=== PATIENT | female | born 1995 | race Caucasian/White ===

== ENCOUNTER 2020-05-01 04:19 | Emergency (ER) | payer SELFPAY ==
[2020-05-01 04:58] LABS: Urine Blood TRACE (NEG); Urine Glucose NEGATIVE (NEG); Urine Protein TRACE (NEG); Urine Specific Gravity >1.030 (1.005-1.030); Urine pH 5.5 (5.0-7.0)
[2020-05-01 05:20] LABS: Urine Bacteria LOADED /HPF (<20); Urine Culture Reflex Order REFLEXED; Urine Mucus 2+ /HPF (NONE SEEN)
[2020-05-01] MEDS ORDERED: CEFTRIAXONE 250 MG/VIAL ONE (06:21)
[2020-05-01] MEDS ORDERED: WATER FOR INJ,STERILE 10 ML ONE (06:21)
[2020-05-01] MEDS ORDERED: AZITHROMYCIN 250 MG TAB ONE (06:21)
--- NOTE | 2020-05-01 06:29 | ER ---
Nurse's Notes [facility] Name: Raquel Saldana Age: 25 yrs Sex: Female : 1995 Arrival Date: 05/01/2020 Time: 04:20 Bed 7 Private MD: Diagnosis: Urinary tract infection, site not specified;Unspecified sexually transmitted disease Presentation: 05/01 04:49 Chief complaint: Patient states: discharge when urinating, no pain but has weird odor. wh Denies fever. Coronavirus screen: Proceed with normal triage. Patient denies a cough. Patient denies shortness of breath or difficulty breathing. Patient denies measured and/or subjective temperature greater than 100.4F prior to today's visit. Patient denies travel on a cruise ship or to a country the [facility] currently lists as an affected area. Patient denies contact with known and/or suspected case of COVID-19. Ebola Screen: Patient negative for fever greater than or equal to 101.5 degrees Fahrenheit, and additional compatible Ebola Virus Disease symptoms Patient denies exposure to infectious person. Initial Sepsis Screen: Does the patient meet any 2 criteria? No. Patient's initial sepsis screen is negative. Does the patient have a suspected source of infection? Yes: Dysuria/Frequency/Urgency/UTI. Risk Assessment: Do you want to hurt yourself or someone else? Patient reports no desire to harm self or others. Onset of symptoms was May 01, 2020. 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 - Social history:: Smoking status: Patient reports the use of cigarette tobacco products, smokes one-half pack cigarettes per day. Screenin:52 Abuse screen: Denies threats or abuse. Denies injuries from another. Nutritional screening: No deficits noted. Tuberculosis screening: No symptoms or risk factors identified. Fall Risk None identified. Assessment: 04:51 General: Appears in no apparent distress. Behavior is calm, cooperative, appropriate for age. Pain: Denies pain. Neuro: Level of Consciousness is awake, alert, obeys commands, Oriented to person, place, time, situation, Appropriate for age. Cardiovascular: Capillary refill < 3 seconds. Respiratory: Airway is patent Respiratory effort is even, unlabored, Respiratory pattern is regular, symmetrical. GI: Abdomen is flat, non-distended, Abd is soft and non tender X 4 quads. : Reports discharge, from vagina that is. EENT: No signs and/or symptoms were reported regarding the EENT system. Derm: Skin is intact, is healthy with good turgor, Skin is pink, warm \T\ dry. normal. Musculoskeletal: Circulation, motion, and sensation intact. 06:34 Reassessment:. Vital Signs: 04:49 BP 128 / 94; Pulse 85; Resp 18; Temp 98.3; Pulse Ox 100% ; Weight 52.16 kg; Height 5 wh ft. 0 in. (152.40 cm); Pain 0/10; 04:49 Body Mass Index 22.46 (52.16 kg, 152.40 cm) ED Course: 04:20 Patient arrived in ED. cl3 04:49 Any Shea is Primary Nurse. 04:51 Triage completed. 04:52 Arm band placed on right wrist. 04:52 Patient has correct armband on for positive identification. Bed in low position. Call light in reach. Side rails up X 1. Pulse ox on. NIBP on. 06:00 Dian[facility]-C [facility] 06:00 Fito oDw MD is Attending Physician. kb 06:35 No provider procedures requiring assistance completed. Patient did not have IV access during this emergency room visit. Administered Medications: 06:21 Drug: Rocephin (cefTRIAXone) 250 mg Route: IM; Site: right gluteus; 06:40 Follow up: Response: No adverse reaction 06:21 Drug: Zithromax 1 grams Route: PO; 06:40 Follow up: Response: No adverse reaction Outcome: 06:28 Discharge ordered by . kb 06:34 Patient left the ED. 06:35 Discharged to home ambulatory. 06:35 Condition: stable 06:35 Discharge instructions given to patient, Instructed on discharge instructions, follow up and referral plans. medication usage, POC Demonstrated understanding of instructions, follow-up care, medications, POC Prescriptions given X 1. Addendum: 05/04/2020 07:59 Addendum: Culture Results: Positive urine culture. No further action required. Bacteria s g sensitive to prescribed antibiotic. Signatures: Dianelys Vyas, COMMUNICATIONS DEPARTMENT HEAD-C COMMUNICATIONS DEPARTMENT HEAD-Chas Kwok, RN RN Any Ortiz Charde cl3
--- NOTE | 2020-05-01 06:29 | EDPHYS ---
Physician Documentation [facility] Name: Raquel Saldana Age: 25 yrs Sex: Female : 1995 Arrival Date: 05/01/2020 Time: 04:20 Bed 7 Private MD: ED Physician Fito Dow HPI: 05/01 06:26 This 25 yrs old Female presents to ER via Ambulatory with complaints of Pain kb With Urination. 06:26 The patient presents with urinary symptoms, dysuria, vaginal discharge. Onset: The kb symptoms/episode began/occurred 3 day(s) ago. Modifying factors: The symptoms are alleviated by nothing, the symptoms are aggravated by urinating. Associated signs and symptoms: Pertinent positives: dysuria, vaginal discharge, Pertinent negatives: constipation, cramping, diarrhea, dyspareunia, fever, hematuria, nausea, urinary frequency, vaginal bleeding, vomiting. Severity of symptoms: At their worst the symptoms were moderate, in the emergency department the symptoms are unchanged. The patient has not experienced similar symptoms in the past. The patient has not recently seen a physician. Pt reports a pinching pain with urination. States she has had a discharge that isn't much different than normal, but she is stressed out about it because her sexual partner has had penile discharge. . 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 - Social history:: Smoking status: Patient reports the use of cigarette tobacco products, smokes one-half pack cigarettes per day. ROS: 06:24 Constitutional: Negative for fever, chills, and weight loss, Cardiovascular: Negative kb for chest pain, palpitations, and edema, Respiratory: Negative for shortness of breath, cough, wheezing, and pleuritic chest pain, Abdomen/GI: Negative for abdominal pain, nausea, vomiting, diarrhea, and constipation, MS/Extremity: Negative for injury and deformity, Skin: Negative for injury, rash, and discoloration, Neuro: Negative for headache, weakness, numbness, tingling, and seizure. 06:24 : Positive for urinary symptoms, burning with urination, vaginal discharge. Exam: 06:24 Constitutional: This is a well developed, well nourished patient who is awake, alert, kb and in no acute distress. Head/Face: Normocephalic, atraumatic. Chest/axilla: Normal chest wall appearance and motion. Nontender with no deformity. No lesions are appreciated. Cardiovascular: Regular rate and rhythm with a normal S1 and S2. No gallops, murmurs, or rubs. Normal PMI, no JVD. No pulse deficits. Respiratory: Lungs have equal breath sounds bilaterally, clear to auscultation and percussion. No rales, rhonchi or wheezes noted. No increased work of breathing, no retractions or nasal flaring. Abdomen/GI: Soft, non-tender, with normal bowel sounds. No distension or tympany. No guarding or rebound. No evidence of tenderness throughout. Back: No spinal tenderness. No costovertebral tenderness. Full range of motion. Skin: Warm, dry with normal turgor. Normal color with no rashes, no lesions, and no evidence of cellulitis. MS/ Extremity: Pulses equal, no cyanosis. Neurovascular intact. Full, normal range of motion. Neuro: Awake and alert, GCS 15, oriented to person, place, time, and situation. Cranial nerves II-XII grossly intact. Motor strength 5/5 in all extremities. Sensory grossly intact. Cerebellar exam normal. Normal gait. Vital Signs: 04:49 BP 128 / 94; Pulse 85; Resp 18; Temp 98.3; Pulse Ox 100% ; Weight 52.16 kg; Height 5 wh ft. 0 in. (152.40 cm); Pain 0/10; 04:49 Body Mass Index 22.46 (52.16 kg, 152.40 cm) wh MDM: 06:01 Patient medically screened. kb 06:24 Data reviewed: vital signs, nurses notes. Data interpreted: Pulse oximetry: on room air kb is 100 %. Interpretation: normal. Counseling: I had a detailed discussion with the patient and/or guardian regarding: the historical points, exam findings, and any diagnostic results supporting the discharge/admit diagnosis, lab results, the need for outpatient follow up, a family practitioner, to return to the emergency department if symptoms worsen or persist or if there are any questions or concerns that arise at home. 07/10 04:45 Order name: Urine Microscopic Only; Complete Time: 06:01 [email or web address] 05/01 04:56 Order name: Urine Dipstick--Ancillary (enter results); Complete Time: 06:01 2 05/01 04:56 Order name: Urine --Ancillary (enter results); Complete Time: 06:01 mw2 05/01 05:21 Order name: Urine Culture EDNY 05/01 04:45 Order name: Urine Dipstick-Ancillary (obtain specimen); Complete Time: 04:49 rr5 05/01 04:45 Order name: Urine Test (obtain specimen); Complete Time: 04:49 rr5 Administered Medications: 06:21 Drug: Rocephin (cefTRIAXone) 250 mg Route: IM; Site: right gluteus; 06:40 Follow up: Response: No adverse reaction 06:21 Drug: Zithromax 1 grams Route: PO; 06:40 Follow up: Response: No adverse reaction Disposition: 06:47 Co-signature as Attending Physician, Fito Dow MD. 7 Disposition: 05/01/20 06:28 Discharged to Home. Impression: Urinary tract infection, site not specified, Unspecified sexually transmitted disease. - Condition is Stable. - Discharge Instructions: Sexually Transmitted Disease, [id number], Urinary Tract Infection, Adult, [id number]. - Prescriptions for Doxycycline Hyclate 100 mg Oral Tablet - take 1 tablet by ORAL route every 12 hours; 20 tablet. - Medication Reconciliation Form, Thank You Letter, Antibiotic Education, Prescription Opioid Use form. - Follow up: Emergency Department; When: As needed; Reason: Worsening of condition. Follow up: Private Physician; When: 2 - 3 days; Reason: Recheck today's complaints, Continuance of care, Re-evaluation by your physician. Signatures: Dispatcher [employer] [facility] Dianelys Vyas FNP-C FNP-Any Beauchamp Raymond, RN RN rr5 Fito Dow MD MD 7 Corrections: (The following items were deleted from the chart) 06:34 06:28 05/01/2020 06:28 Discharged to Home. Impression: Urinary tract infection, site wh not specified; Unspecified sexually transmitted disease. Condition is Stable. Forms are Medication Reconciliation Form, Thank You Letter, Antibiotic Education, Prescription Opioid Use. Follow up: Emergency Department; When: As needed; Reason: Worsening of condition. Follow up: Private Physician; When: 2 - 3 days; Reason: Recheck today's complaints, Continuance of care, Re-evaluation by your physician. kb
[2020-05-01 06:59] VITALS: BP 128/94; TEMP 98.3; O2SAT 100
== END 2020-05-01 06:34 | disposition home or self-care (01) ==
LOC: ER 04:19
DX: N39.0 Urinary tract infection, site not specified (principal); A64 Unspecified sexually transmitted disease; F17.210 Nicotine dependence, cigarettes, uncomplicated
CPT/HCPCS: 81003; 81015; 81025; 87077; 87086; 87088; 87186; 96372; 99283; J0696

== ENCOUNTER 2021-02-25 12:29 | Inpatient (IN) | payer SELFPAY ==
[2021-02-25 13:30] LABS: Urine Blood Negative (Negative); Urine Glucose Negative (Negative); Urine Protein Negative (Negative); Urine Specific Gravity >=1.030 (1.005-1.030)
[2021-02-25] MEDS ORDERED: FAMOTIDINE 20 MG/2 ML VIAL IV ONE (13:37)
[2021-02-25] MEDS ORDERED: ONDANSETRON 4 MG/2 ML VIAL ONE (13:37)
[2021-02-25] MEDS ORDERED: MORPHINE 4 MG/ML SYR ONE (13:37)
[2021-02-25] MEDS ORDERED: NA CHLORIDE 0.9% 1,000 ML ONE (13:38)
[2021-02-25 13:48] LABS: Basophils % 0.9 % (0-1.3); Hematocrit 39.9 % (36.0-45.0); Lymphocytes % 24.7 % (15.3-44.8); RBC Red Blood Cell Count 4.52 M/uL (3.86-4.86)
[2021-02-25 13:49] LABS: ALT/SGPT 21 U/L (12-78); AST/SGOT 13 U/L (15-37); Albumin 3.9 g/dL (3.4-5.0); Alkaline Phosphatase 52 U/L (45-117); BUN Blood Urea Nitrogen 14 mg/dL (7-18); Bicarbonate 30 mmol/L (21-32); Bilirubin Direct < 0.1 mg/dL (0-0.2); Bilirubin Total 0.2 mg/dL (0.2-1.0); Glucose Level 80 mg/dL (74-106); Potassium 3.8 mmol/L (3.5-5.1); Protein, Total 7.1 g/dL (6.4-8.2); Sodium Level 139 mmol/L (136-145)
[2021-02-25 13:50] LABS: Lipase 154 U/L (73-393)
[2021-02-25] MEDS ORDERED: PIPER/TAZO/NS 3.375gm 3.375 GM/100 ML BAG ONE (14:08)
--- NOTE | 2021-02-25 14:12 | RAD REPORT ---
EXAM DESCRIPTION: US - Abdomen Exam Limited - 02/25/2021 1:41 pm CLINICAL HISTORY: Abdominal pain. COMPARISON: None. FINDINGS: The gallbladder wall is not thickened. A 13 millimeter gallstone. Common bile duct measures 5 millimeters IMPRESSION: Cholelithiasis
--- NOTE | 2021-02-25 15:01 | ER ---
Nurse's Notes [facility] Name: Raquel Saldana Age: 25 yrs Sex: Female : 1995 Arrival Date: 02/25/2021 Time: 12:33 Bed 30 Private MD: Diagnosis: Cholelithiasis;Cholecystitis;Abdominal tenderness;Urinary tract infection, site not specified Presentation: 02/25 12:55 Chief complaint: Patient states: Abdominal Pain 4 days ago. Was seen at [facility] kg 4 days ago and diagnosed with gallstones. Coronavirus screen: Client denies travel out of the [place] in the last 14 days. Ebola Screen: Patient negative for fever greater than or equal to 101.5 degrees Fahrenheit, and additional compatible Ebola Virus Disease symptoms Patient denies exposure to infectious person. Patient denies travel to an Ebola-affected area in the 21 days before illness onset. Initial Sepsis Screen: Does the patient meet any 2 criteria? No. Patient's initial sepsis screen is negative. Does the patient have a suspected source of infection? No. Patient's initial sepsis screen is negative. Risk Assessment: Do you want to hurt yourself or someone else? Patient reports no desire to harm self or others. Onset of symptoms was February 20, 2021. 12:55 Method Of Arrival: Ambulatory kg 12:55 Acuity: SAMIRA 3 kg Historical: - Allergies: 13:07 No Known Allergies; kg - PSHx: 13:07 Tubal ligation; kg - Immunization history:: Adult Immunizations up to date. - Social history:: Smoking status: Patient reports the use of cigarette tobacco products, smokes one-half pack cigarettes per day, Patient uses street drugs, marijuana. Screenin:04 Abuse screen: Denies threats or abuse. Nutritional screening: No deficits noted. kg Tuberculosis screening: No symptoms or risk factors identified. Fall Risk None identified. Assessment: 13:02 General: Appears in no apparent distress. Behavior is calm, cooperative, appropriate kg for age, quiet. Pain: Complains of pain in right upper quadrant Pain does not radiate. Pain currently is 8 out of 10 on a pain scale. at worst was 8 out of 10 on a pain scale. level that patient reports is acceptable is 3 out of 10 on a pain scale. Quality of pain is described as sharp, stabbing, Pain began 4 days ago. Is continuous. Neuro: No deficits noted. Cardiovascular: No deficits noted. Respiratory: Reports shortness of breath since Pt states the pain from my stomach takes my breath away Airway is patent Breath sounds are clear bilaterally. GI: Bowel sounds present X 4 quads. Abd is soft X 4 quads Abdomen is tender to palpation in right upper quadrant Reports upper abdominal pain, nausea. : Urine is cloudy. EENT: No deficits noted. Derm: No deficits noted. Musculoskeletal: No deficits noted. 13:27 Reassessment: Pt left for Ultrasound.. kg 13:41 Reassessment: Pt returned from Ultrasound.. kg Vital Signs: 12:55 BP 106 / 73; Pulse 84; Resp 20; Temp 98.3(O); Pulse Ox 100% on R/A; Pain 8/10; kg 14:00 BP 103 / 80; Pulse 80; Resp 16; Pulse Ox 99% on R/A; kg ED Course: 12:33 Patient arrived in ED. ds1 12:34 Richard Caro MD is Attending Physician. adrián 12:55 Chelsea Zhong is Primary Nurse. kg 13:01 Triage completed. kg 13:04 Inserted saline lock: 20 gauge in right antecubital area, using aseptic technique. kg 13:04 Arm band placed on right wrist. kg 13:39 Urine Culture Sent. kg 13:41 Basic Metabolic Panel Sent. kg 13:41 CBC with Diff Sent. kg 13:41 Hepatic Function Sent. kg 14:55 Caroline Lopez DO is Hospitalizing Provider. adrián 14:57 Ruperto Rob MD is Hospitalizing Provider. adrián 15:48 Chest Single View XRAY In Process Unspecified. EDMS Administered Medications: 12:50 Drug: Zosyn (piperacillin-tazobactam) 3.375 grams Route: IVPB; Infused Over: 60 mins; kg Site: left antecubital; 14:53 Follow up: Response: No adverse reaction; IV Status: Completed infusion; IV Intake: kg 100ml 13:24 Drug: NS 0.9% 1000 ml Route: IV; Rate: 1 bolus; Site: left antecubital; kg 13:24 Drug: Pepcid (famotidine) 20 mg Route: IVP; Site: left antecubital; kg 14:05 Follow up: Response: No adverse reaction; Marked relief of symptoms kg 13:24 Drug: morphine 4 mg Route: IVP; Site: left antecubital; kg 14:04 Follow up: Response: No adverse reaction; Pain is decreased kg 13:24 Drug: Zofran (Ondansetron) 4 mg Route: IVP; Site: left antecubital; kg 14:04 Follow up: Response: No adverse reaction; Marked relief of symptoms kg Intake: 14:53 IV: 100ml; Total: 100ml. kg Outcome: 15:01 Decision to Hospitalize by Provider. [facility] 19:06 Patient left the ED. iw Signatures: Dispatcher [employer] EDRichard Kaufman MD MD cha Sanford, Demi ds1 Mya Moya RN RN Chelsea Foreman kg Corrections: (The following items were deleted from the chart) 13:42 13:38 Reassessment: Pt left for Ultrasound.. kg kg
--- NOTE | 2021-02-25 15:01 | EDPHYS ---
Physician Documentation [facility] Name: Raquel Saldana Age: 25 yrs Sex: Female : 1995 Arrival Date: 02/25/2021 Time: 12:33 Bed 30 Private MD: ED Physician Richard Caro HPI: 02/25 13:22 This 25 yrs old Female presents to ER via Ambulatory with complaints of Side adrián Pain. Historical: - Allergies: 13:07 No Known Allergies; kg - PSHx: 13:07 Tubal ligation; kg - Immunization history:: Adult Immunizations up to date. - Social history:: Smoking status: Patient reports the use of cigarette tobacco products, smokes one-half pack cigarettes per day, Patient uses street drugs, marijuana. ROS: 13:23 Constitutional: Negative for fever, chills, and weight loss, Eyes: Negative for injury, adrián pain, redness, and discharge, ENT: Negative for injury, pain, and discharge, Neck: Negative for injury, pain, and swelling, Cardiovascular: Negative for chest pain, palpitations, and edema, Respiratory: Negative for shortness of breath, cough, wheezing, and pleuritic chest pain, Back: Negative for injury and pain, : Negative for injury, bleeding, discharge, and swelling, MS/Extremity: Negative for injury and deformity, Skin: Negative for injury, rash, and discoloration, Neuro: Negative for headache, weakness, numbness, tingling, and seizure, Psych: Negative for depression, anxiety, suicide ideation, homicidal ideation, and hallucinations, Allergy/Immunology: Negative for hives, rash, and allergies, Endocrine: Negative for neck swelling, polydipsia, polyuria, polyphagia, and marked weight changes, Hematologic/Lymphatic: Negative for swollen nodes, abnormal bleeding, and unusual bruising. 13:23 Abdomen/GI: Positive for abdominal pain, of the right upper quadrant. Exam: 13:23 Constitutional: This is a well developed, well nourished patient who is awake, alert, adrián and in no acute distress. Head/Face: Normocephalic, atraumatic. Eyes: Pupils equal round and reactive to light, extra-ocular motions intact. Lids and lashes normal. Conjunctiva and sclera are non-icteric and not injected. Cornea within normal limits. Periorbital areas with no swelling, redness, or edema. ENT: Nares patent. No nasal discharge, no septal abnormalities noted. Tympanic membranes are normal and external auditory canals are clear. Oropharynx with no redness, swelling, or masses, exudates, or evidence of obstruction, uvula midline. Mucous membranes moist. Neck: Trachea midline, no thyromegaly or masses palpated, and no cervical lymphadenopathy. Supple, full range of motion without nuchal rigidity, or vertebral point tenderness. No Meningismus. Chest/axilla: Normal chest wall appearance and motion. Nontender with no deformity. No lesions are appreciated. Cardiovascular: Regular rate and rhythm with a normal S1 and S2. No gallops, murmurs, or rubs. Normal PMI, no JVD. No pulse deficits. Respiratory: Lungs have equal breath sounds bilaterally, clear to auscultation and percussion. No rales, rhonchi or wheezes noted. No increased work of breathing, no retractions or nasal flaring. Back: No spinal tenderness. No costovertebral tenderness. Full range of motion. Skin: Warm, dry with normal turgor. Normal color with no rashes, no lesions, and no evidence of cellulitis. MS/ Extremity: Pulses equal, no cyanosis. Neurovascular intact. Full, normal range of motion. Neuro: Awake and alert, GCS 15, oriented to person, place, time, and situation. Cranial nerves II-XII grossly intact. Motor strength 5/5 in all extremities. Sensory grossly intact. Cerebellar exam normal. Normal gait. Psych: Awake, alert, with orientation to person, place and time. Behavior, mood, and affect are within normal limits. 13:23 Abdomen/GI: Inspection: abdomen appears normal, Bowel sounds: normal, Palpation: moderate abdominal tenderness, in the right upper quadrant, Liver: no appreciated palpable abnormalities, Hernia: not appreciated. Vital Signs: 12:55 BP 106 / 73; Pulse 84; Resp 20; Temp 98.3(O); Pulse Ox 100% on R/A; Pain 8/10; kg 14:00 BP 103 / 80; Pulse 80; Resp 16; Pulse Ox 99% on R/A; kg MDM: 12:46 Patient medically screened. [facility] 13:25 Differential diagnosis: cholecystitis, Cholelithiasis, diverticulitis, myocardia adrián ischemia or infarction, non-specific abd pain, pancreatitis, Pyelonephritis, Ureterolithiasis, urinary tract infection. Data reviewed: vital signs, nurses notes, lab test result(s), radiologic studies, plain films. Data interpreted: monitoring manager: rate is 84 beats/min, rhythm is regular, Pulse oximetry: on room air is 100 %. Test interpretation: by ED physician or midlevel provider: plain radiologic studies. Counseling: I had a detailed discussion with the patient and/or guardian regarding: the historical points, exam findings, and any diagnostic results supporting the discharge/admit diagnosis, lab results, radiology results. 02/25 13:20 Order name: Basic Metabolic Panel [facility] 02/25 13:20 Order name: CBC with Diff [facility] 02/25 13:20 Order name: Hepatic Function [facility] 02/25 13:20 Order name: Lipase [facility] 02/25 13:20 Order name: Urine Culture [facility] 02/25 13:31 Order name: Urine Dipstick-Ancillary; Complete Time: 13:59 [facility] 02/25 13:49 Order name: CBC with Automated Diff; Complete Time: 13:59 [facility] 02/25 13:50 Order name: Basic Metabolic Panel; Complete Time: 13:59 [facility] 02/25 13:50 Order name: Liver (Hepatic) Function; Complete Time: 13:59 [facility] 02/25 13:50 Order name: Lipase; Complete Time: 13:59 [facility] 02/25 16:02 Order name: COVID-19 : Document "Date of Symptom Onset" if Symptomatic. aa5 02/25 16:02 Order name: Basic Metabolic Panel [facility] 02/25 16:02 Order name: Basic Metabolic Panel [facility] 02/25 16:03 Order name: Test Serum, [employer] [facility] 02/25 13:20 Order name: IV Saline Lock; Complete Time: 13:41 [facility] 02/25 13:20 Order name: Labs collected and sent; Complete Time: 13:41 [facility] 02/25 13:20 Order name: Chest Single View XRAY [facility] 02/25 13:20 Order name: US Abdomen Limited [facility] 02/25 13:20 Order name: Urine Dipstick-Ancillary (obtain specimen); Complete Time: 13:39 [facility] 02/25 13:20 Order name: Urine Test (obtain specimen); Complete Time: 13:39 [facility] 02/25 14:13 Order name: US; Complete Time: 14:30 [facility] 02/25 16:02 Order name: NPO [facility]MS 02/25 16:59 Order name: CORONAVIRUS EDMS 02/25 17:48 Order name: SARS-COV-2 RT PCR EDMS Administered Medications: 12:50 Drug: Zosyn (piperacillin-tazobactam) 3.375 grams Route: IVPB; Infused Over: 60 mins; kg Site: left antecubital; 14:53 Follow up: Response: No adverse reaction; IV Status: Completed infusion; IV Intake: kg 100ml 13:24 Drug: NS 0.9% 1000 ml Route: IV; Rate: 1 bolus; Site: left antecubital; kg 13:24 Drug: Pepcid (famotidine) 20 mg Route: IVP; Site: left antecubital; kg 14:05 Follow up: Response: No adverse reaction; Marked relief of symptoms kg 13:24 Drug: morphine 4 mg Route: IVP; Site: left antecubital; kg 14:04 Follow up: Response: No adverse reaction; Pain is decreased kg 13:24 Drug: Zofran (Ondansetron) 4 mg Route: IVP; Site: left antecubital; kg 14:04 Follow up: Response: No adverse reaction; Marked relief of symptoms kg Disposition: 02/25/21 15:01 Hospitalization ordered by Ruperto Rob for Observation. Preliminary diagnosis are Cholelithiasis, Cholecystitis, Abdominal tenderness, Urinary tract infection, site not specified. - Bed requested for Telemetry/MedSurg (observation). - Status is Observation. iw - Condition is Fair. - Problem is new. - Symptoms have improved. Signatures: Dispatcher [employer] [facility] Alexandria Patino RN RN dw Anderson, Corey, MD MD cha Williams, Irene RN Chelsea Webb kg Corrections: (The following items were deleted from the chart) 18:40 15:01 Hospitalization Ordered by Ruperto Rob MD for Observation. Preliminary diagnosis is Cholelithiasis; Cholecystitis; Abdominal tenderness; Urinary tract infection, site not specified. Bed requested for Telemetry/MedSurg (observation). Status is Observation. Condition is Fair. Problem is new. Symptoms have improved. [facility] 19:06 18:40 02/25/2021 15:01 Hospitalization Ordered by Ruperto Rob MD for Observation. iw Preliminary diagnosis is Cholelithiasis; Cholecystitis; Abdominal tenderness; Urinary tract infection, site not specified. Bed requested for Telemetry/MedSurg (observation). Status is Observation. Condition is Fair. Problem is new. Symptoms have improved. dw
[2021-02-25] MEDS ORDERED: ONDANSETRON 4 MG/2 ML VIAL IV PRN (15:10)
[2021-02-25] MEDS ORDERED: ACETAMINOPHEN 500 MG TAB PO PRN (15:10)
[2021-02-25] MEDS ORDERED: MORPHINE 2 MG/ML SYR IV PRN (15:14)
--- NOTE | 2021-02-25 15:23 | P.HP ---
Certification for Inpatient Patient admitted to: Observation With expected LOS: <2 Midnights Patient will require the following post-hospital care: None Practitioner: I am a practitioner with admitting privileges, knowledge of patient current condition, hospital course, and medical plan of care. Services: Services provided to patient in accordance with Admission requirements found in Title 42 Section 412.3 of the Code of Federal Regulations Patient History Date of Service: 02/25/21 Reason for admission: abd pain, cholelithiasis. History of Present Illness: 25 y o female pt who reports being s/p tubal ligation who was evaluated in the Ed for episode of abd pain with nausea. she denied any fever, chills, rigor, diarrhea. her pain started 4 days ago and she rates it 8/10 in intensity at it's worst. No trauma to the abd reported. Imaging doine in the ER revealed cholelithiasis and she was admitted for possible cholecystectomy. Allergies No Known Allergies Allergy (Unverified 01/23/13 19:19) Home Medications: Ibuprofen [Motrin] 600 mg PO Q4HR PRN #30 tablet 08/17/13 - Social History Alcohol use: No CD- Drugs: No Caffeine use: Yes Review of Systems General: Unremarkable Eyes: Unremarkable ENT: Unremarkable Respiratory: Unremarkable Cardiovascular: Unremarkable Gastrointestinal: Nausea, Abdominal Pain Genitourinary: Unremarkable Musculoskeletal: Unremarkable Integumentary: Unremarkable Neurological: Unremarkable Physical Examination - Physical Exam General: Alert, Oriented x3, Cooperative HEENT: Atraumatic, Normocephalic Neck: Supple Respiratory: Clear to auscultation bilaterally Cardiovascular: Regular rate/rhythm, Normal S1 S2 Gastrointestinal: Tenderness (right upper quadrant.) Neurological: Normal speech, Normal strength at 5/5 x4 extr, Cranial nerves 3-12 intact - Studies Laboratory Data (last 24 hrs) 02/25/21 13:23: WBC 8.10, Hgb 13.2, Hct 39.9, Plt Count 284 02/25/21 13:23: Sodium 139, Potassium 3.8, BUN 14, Creatinine 0.70, Glucose 80, Total Bilirubin 0.2, AST 13 L, ALT 21, Alkaline Phosphatase 52, Lipase 154 Assessment and Plan - Plan 1. Abd pain: Due to gallstones. morphine for pain control on board. Surgeon consulted. 2. Cholelithiasis: Detected on imaging. Surgeon consulted for possible cholecystectomy. we will continue IV fluid and morphine for pain control. 3. N/V: Zofran started for management. - Advance Directives Does patient have a Living Will: No Does patient have a Durable POA for Healthcare: No
[2021-02-25] MEDS ORDERED: ENOXAPARIN 40 MG/0.4 ML SQ SCH (16:00)
[2021-02-25] MEDS ORDERED: NA CHLORIDE 0.9% 1,000 ML IV SCH (16:00)
--- NOTE | 2021-02-25 16:01 | RAD REPORT ---
EXAM DESCRIPTION: Maria Fernanda Single View02/25/2021 2:59 pm CLINICAL HISTORY: Abdominal pain COMPARISON: none FINDINGS: 15 millimeter nodular opacity right base. The remainder of the lungs appear clear of acute infiltrate. The heart is normal size IMPRESSION: 15 millimeter nodular opacity right base most likely nipple shadow. This should confirme d with frontal and oblique views of the chest with a nipple marker
[2021-02-25 19:13] VITALS: TEMP 98.3
[2021-02-25 19:14] VITALS: BP 103/80; O2SAT 99
== END 2021-02-26 09:10 | disposition left against medical advice (07) | DRG 446 ==
LOC: ER 12:29 → ERHOLD 15:10 → OBSVTOIN 02-26 09:08
PROVIDERS: ADMIT Internal Medicine Nephrology; ATTEND Internal Medicine Nephrology
DX: K80.20 Calculus of gallbladder without cholecystitis without obstruction (principal); F17.210 Nicotine dependence, cigarettes, uncomplicated; Z53.29 Procedure and treatment not carried out because of patient's decision for other reasons; Z79.899 Other long term (current) drug therapy; Z98.51 Tubal ligation status; Z20.822 Contact with and (suspected) exposure to COVID-19
CPT/HCPCS: 36415; 71045; 76705; 80048; 80076; 81003; 83690; 85025; 87077; 87086; 87088; 87186; 96365; 96366; 96375; 99284; G0378; J2405; J2543; J7030; U0003

== ENCOUNTER 2022-02-22 16:40 | Emergency (ER) | payer SELFPAY ==
[2022-02-22 17:47] LABS: SARS-COV-2 RT PCR NEGATIVE (NEGATIVE)
--- NOTE | 2022-02-22 18:06 | ER ---
Nurse's Notes [facility] Name: Raquel Saldana Age: 26 yrs Sex: Female : 1995 Arrival Date: 02/22/2022 Time: 16:46 Bed Waiting Private MD: Diagnosis: Viral syndrome Presentation: 02/22 16:47 Chief complaint: Patient states: Exposed to covid. Started having WHYTE, no taste, body ll1 aches, chills Monday. Coronavirus screen: Vaccine status: Patient reports being unvaccinated. Client denies travel out of the [place] in the last 14 days. fatigue, headache, muscle pain, loss of taste or smell, Client presents with at least one sign or symptom that may indicate coronavirus-19. Standard/surgical mask placed on the client. Ebola Screen: Patient denies travel to an Ebola-affected area in the 21 days before illness onset. Initial Sepsis Screen: Does the patient meet any 2 criteria? No. Patient's initial sepsis screen is negative. Does the patient have a suspected source of infection? No. Patient's initial sepsis screen is negative. Risk Assessment: Do you want to hurt yourself or someone else? Patient reports no desire to harm self or others. Onset of symptoms was February 20, 2022. 16:47 Method Of Arrival: Ambulatory ll1 16:47 Acuity: SAMIRA 4 ll1 Triage Assessment: 16:49 General: Appears uncomfortable, Behavior is cooperative, appropriate for age. Pain: ss Denies pain. Musculoskeletal: Reports body aches. 16:49 Neuro: Reports headache. ss Historical: - Allergies: 16:48 No Known Allergies; ll1 - PMHx: 16:48 None; ll1 - PSHx: 16:48 tubal ligation; ll1 - Immunization history:: Client reports having NOT received the Covid vaccine. Flu vaccine status is unknown. - Social history:: Smoking status: Patient reports the use of cigarette tobacco products, smokes one-half pack cigarettes per day. Screenin:37 Abuse screen: Denies threats or abuse. Denies injuries from another. Nutritional ld1 screening: No deficits noted. Tuberculosis screening: No symptoms or risk factors identified. Fall Risk None identified. Assessment: 19:37 Reassessment: see triage assessment. ld1 Vital Signs: 16:47 BP 122 / 70; Pulse 85; Resp 17; Temp 99.0; Pulse Ox 100% ; Weight 49.9 kg; Height 5 ft. ll1 0 in. (152.40 cm); Pain 0/10; 19:37 BP 124 / 73; Pulse 81; Resp 18; Pulse Ox 100% on R/A; ld1 16:47 Body Mass Index 21.48 (49.90 kg, 152.40 cm) ll1 ED Course: 16:46 Patient arrived in ED. ll1 16:48 Triage completed. ll1 16:49 Arm band placed on. ll1 18:00 Moises Gutierrez PA is PHCP. marleny 18:00 Caleb Cuellar MD is Attending Physician. [facility] 19:37 Patient has correct armband on for positive identification. Placed in gown. Bed in low ld1 position. Call light in reach. Side rails up X2. satellite project site monitor on. Pulse ox on. NIBP on. Door closed. Noise minimized. 19:37 No provider procedures requiring assistance completed. Patient did not have IV access ld1 during this emergency room visit. Administered Medications: 19:20 Drug: Decadron (dexamethasone) 10 mg Route: IM; Site: left gluteus; ld1 19:37 Follow up: Response: No adverse reaction ld1 Outcome: 18:06 Discharge ordered by . [facility] 19:37 Discharged to home ambulatory. ld1 19:37 Condition: stable 19:37 Discharge instructions given to patient, Instructed on discharge instructions, follow up and referral plans. medication usage, Demonstrated understanding of instructions, follow-up care, medications, Prescriptions given X 1. 19:38 Patient left the ED. ld1 Signatures: Moises Gutierrez PA PA jmm Smirch, Shelby, RN RN ss Peter Alonso RN RN 1 Lisa Rico RN RN ld1 Corrections: (The following items were deleted from the chart) 18:00 16:49 General: Appears uncomfortable, Behavior is cooperative, appropriate for age, ss ss
--- NOTE | 2022-02-22 18:06 | EDPHYS ---
Physician Documentation [facility] Name: Raquel Saldana Age: 26 yrs Sex: Female : 1995 Arrival Date: 02/22/2022 Time: 16:46 Bed Waiting Private MD: ED Physician Caleb Cuellar HPI: 02/22 16:50 This 26 yrs old Female presents to ER via Ambulatory with complaints of General jmm Weakness - r/o covid. 16:50 Onset: The symptoms/episode began/occurred gradually, 1 day(s) ago. Associated signs jmm and symptoms: Pertinent positives: shortness of breath. Is a 26-year-old female with no known chronic medical conditions presents emerged part with complaints of fatigue, shortness of breath, mild cough, loss of smell. Patient states that a family member was recently diagnosed with COVID. Patient denies sore throat.. Historical: - Allergies: 16:48 No Known Allergies; ll1 - PMHx: 16:48 None; ll1 - PSHx: 16:48 tubal ligation; ll1 - Immunization history:: Client reports having NOT received the Covid vaccine. Flu vaccine status is unknown. - Social history:: Smoking status: Patient reports the use of cigarette tobacco products, smokes one-half pack cigarettes per day. ROS: 16:50 Constitutional: Positive for chills, fatigue. jmm 16:50 Respiratory: Positive for cough, shortness of breath. 16:50 All other systems are negative. Exam: 16:50 Constitutional: This is a well developed, well nourished patient who is awake, alert, jmm and in no acute distress. Head/Face: atraumatic. Eyes: EOMI, no conjunctival erythema appreciated ENT: Moist Mucus Membranes Neck: Trachea midline, Supple Chest/axilla: Normal chest wall appearance and motion. Cardiovascular: Regular rate and rhythm. No edema appreciated 16:50 Back: Normal ROM Skin: General appearance color normal MS/ Extremity: Moves all extremities, no obvious deformities appreciated, no edema noted to the lower extremities Neuro: Awake and alert Psych: Behavior is normal, Mood is normal, Patient is cooperative and pleasant 16:50 Respiratory: the patient does not display signs of respiratory distress, Respirations: normal, Breath sounds: are clear throughout. Vital Signs: 16:47 BP 122 / 70; Pulse 85; Resp 17; Temp 99.0; Pulse Ox 100% ; Weight 49.9 kg; Height 5 ft. ll1 0 in. (152.40 cm); Pain 0/10; 19:37 BP 124 / 73; Pulse 81; Resp 18; Pulse Ox 100% on R/A; ld1 16:47 Body Mass Index 21.48 (49.90 kg, 152.40 cm) ll1 MDM: 18:05 Data reviewed: vital signs, nurses notes. Counseling: I had a detailed discussion with marleny the patient and/or guardian regarding: the historical points, exam findings, and any diagnostic results supporting the discharge/admit diagnosis, lab results, the need for outpatient follow up, to return to the emergency department if symptoms worsen or persist or if there are any questions or concerns that arise at home. ED course: Patient is alert and nontoxic in appearance in the ED. Advised follow-up PCP and otherwise given strict return precautions. Patient understood agrees plan of care.. 18:06 Patient medically screened. [facility] 02/22 16:50 Order name: COVID-19/FLU A+B (Document "Date of Onset" if Symptomatic); Complete Time: ll1 18:00 Administered Medications: 19:20 Drug: Decadron (dexamethasone) 10 mg Route: IM; Site: left gluteus; ld1 19:37 Follow up: Response: No adverse reaction ld1 Disposition: 02/23 07:11 Co-signature as Attending Physician, Caleb Cuellar MD. rn Disposition Summary: 02/22/22 18:06 Discharge Ordered Location: Home [facility] Condition: Stable [facility] Diagnosis - Viral syndrome [facility] Followup: [facility] - With: Private Physician - When: 2 - 3 days - Reason: Recheck today's complaints, Continuance of care, Re-evaluation by your physician Discharge Instructions: - Discharge Summary Sheet [facility] - COVID-19 [facility] - COVID-19 Frequently Asked Questions [facility] Forms: - Medication Reconciliation Form [facility] - Thank You Letter [facility] - Antibiotic Education [facility] - Prescription Opioid Use [facility] Prescriptions: - albuterol sulfate 90 mcg/actuation Inhalation HFA aerosol inhaler - inhale 2 puff by INHALATION route every 4 hours; 1 Pump; Refills: 0, Product [facility] Selection Permitted Signatures: Dispatcher [employer] EDMS MicMoises braden PA PA jmm Nieto, Roman, MD MD rn Peter Alonso RN RN ll1 Lisa Rico RN RN ld1
[2022-02-22] MEDS ORDERED: dexAMETHasone 4 MG/ML VIAL ONE (19:37)
[2022-02-22 22:12] VITALS: TEMP 99; O2SAT 100
[2022-02-22 22:13] VITALS: BP 124/73
== END 2022-02-22 19:38 | disposition home or self-care (01) ==
LOC: ER 16:40
DX: B34.9 Viral infection, unspecified (principal); Z20.822 Contact with and (suspected) exposure to COVID-19; F17.210 Nicotine dependence, cigarettes, uncomplicated
CPT/HCPCS: 0240U; 96372; 99284; J1100